=== PATIENT | male | born 1940 | race African-American/Black ===

== ENCOUNTER 2017-09-15 10:17 | Emergency (ER) | payer OTHER ==
[~2017-09-15] VITALS: Ht 170.2 cm; Wt 58.0 kg
[~2017-09-15 10:17] MED LIST: ASPI-1159 PO; BENA20TA3 PO; CITA20TA11 PO; DONE10TA11 PO; GABA-531 PO; LORA10TA7 PO; METF500T4 PO
[2017-09-15] MEDS ORDERED: LORA10TA7 PO (10:37)
[2017-09-15] MEDS ORDERED: ASPI-1159 PO (10:37)
[2017-09-15] MEDS ORDERED: ALBU90AE IH (10:37)
[2017-09-15] MEDS ORDERED: GUAI600T26 PO (10:37)
[2017-09-15] MEDS ORDERED: CLOP75TA15 PO (10:37)
[2017-09-15] MEDS ORDERED: QUET25TA PO (10:37)
[2017-09-15] MEDS ORDERED: LIDOCAINE HCL/EPINEPHRINE 1%-EPI 1:100,000 50 ML VIAL INFIL ONE (11:15)
[2017-09-15] MEDS ORDERED: LIDOCAINE HCL/EPINEPHRINE 1%-EPI 1:100,000 20 ML VIAL INFIL ONE (11:15)
[2017-09-15] MEDS ORDERED: LIDOCAINE HCL/EPINEPHRINE 1%-EPI 1:100,000 30 ML VIAL INFIL ONE (11:15)
[2017-09-15 11:37] LABS: BASOPHILS % 0.5 % (0.0-2.0); EOSINOPHILS % 0.7 % (0.0-5.0); HEMATOCRIT. 24.8 % (42.0-52.0); HEMOGLOBIN. 8.3 g/dL (14.0-18.0); LYMPHOCYTES % 18.9 % (20.0-50.0); MEAN CORPUSCULAR HEMOGLOBIN 29.8 pg (28.0-32.0); MEAN CORPUSCULAR VOLUME 89.2 fL (80.0-94.0); MEAN PLATELET VOLUME 8.3 fl (7.4-10.4); MONOCYTES % 6.6 % (2.0-8.0); NEUTROPHILS % 73.3 % (40.0-76.0); PLATELET 252 x1000/uL (130-400); RED BLOOD CELL COUNT 2.78 mill/uL (4.7-6.1); RED CELL DISTRIBUTION WIDTH 13.2 % (11.6-14.6)
[2017-09-15 11:47] LABS: CHLORIDE 102 mEq/L (98-107)
[2017-09-15] MEDS ORDERED: LIDOCAINE HCL/EPINEPHRINE 1%-EPI 1:100,000 50 ML VIAL INFIL NR (14:57)
[2017-09-15 15:54] VITALS: BP 157/93
== END 2017-09-15 16:41 | disposition home or self-care (01) ==
LOC: ER 10:17
DX: S01.511A Laceration without foreign body of lip, initial encounter (principal); W22.8XXA Striking against or struck by other objects, initial encounter; Y93.89 Activity, other specified; Y92.89 Other specified places as the place of occurrence of the external cause; E11.9 Type 2 diabetes mellitus without complications; I10 Essential (primary) hypertension; Z86.73 Personal history of transient ischemic attack (TIA), and cerebral infarction without residual deficits; Z79.82 Long term (current) use of aspirin
CPT/HCPCS: 12013; 36415; 70450; 80053; 85025; 93005; 99285; J3490